=== PATIENT | female | born 1960 | race Caucasian/White ===

== ENCOUNTER → 2023-02-17 | Outpatient (CLI) | payer BC, OTHER ==
[2023-02-17 15:01] LABS: C REACTIVE PROTEIN QUANTITATIV < 0.40 MG/DL (<1.0)
[2023-02-17 15:06] LABS: RHEUMATOID FACTOR QUANT 12.2 IU/ML (<14)
[2023-02-18 13:07] LABS: ANTINUCLEAR ANTIBODIES DIRECT Negative (Negative)
== END ==
LOC: M PLALAB 11:34
PROVIDERS: ATTEND Physician Assistant
DX: M25.462 Effusion, left knee (principal)